=== PATIENT | male | born 1980 ===

== ENCOUNTER 2017-05-20 01:42 | Emergency (ER) | payer SELFPAY ==
[2017-05-20 01:55] VITALS: BP 145/98; PULSE 111; RESP 20; TEMP 98.1; O2SAT 100
--- NOTE | 2017-05-20 02:33 | ED PDOC ---
Arrival/HPI - General Chief Complaint: Anxiety Time Seen by Provider: 05/20/17 01:46 Historian: Patient - History of Present Illness Narrative History of Present Illness (Text): 05/20/17 02:29 A 37 year old male, who denies any past medical history, presents to the emergency department complaining of anxiety and feeling stressed this past month. Patient reports he recently came to the from [place] last month and has been feeling stressed out because of work. Reports he hasn't slept well. This evening he experienced episode of palpitations, shaking and sweating. Patient notes he had similar sx during an anxiety attack seven years ago. Notes he drinks four beers a week, denies any drug use. Denies any suicidal ideation, fever or any other complaints at this time. Symptom Onset: Sudden Symptom Course: Unchanged Modifying Factors (Text): none Associated Symptoms (Text): none Past Medical History - Provider Review Nursing Documentation Reviewed: Yes - Psychiatric Hx Substance Use: No - Surgical History Other/Comment: right nephrectomy Family/Social History - Physician Review Nursing Documentation Reviewed: Yes Family/Social History: Other (nc) Smoking Status: Never Smoked Hx Alcohol Use: Yes Frequency of alcohol use: Socially Hx Substance Use: No Allergies/Home Meds Allergies/Adverse Reactions: Allergies banana Allergy (Verified 05/20/17 01:57) RASH estrellita Allergy (Verified 05/20/17 01:57) RASH avacado Adverse Reaction (Uncoded 05/20/17 01:57) RASH Review of Systems - Physician Review All systems were reviewed & negative as marked: Yes - Review of Systems Constitutional: absent: Fevers Cardiovascular: Palpitations Psychiatric: Anxiety. absent: Suicidal Ideation Physical Exam Vital Signs Reviewed: Yes Vital Signs Temp Pulse Resp BP Pulse Ox 05/20/17 01:51 98.1 F 111 H 20 145/98 H 100 Appearance: Positive for: Well-Appearing, Non-Toxic, Comfortable Pain Distress: None Mental Status: Positive for: Alert and Oriented X 3 - Systems Exam Head: Present: Atraumatic, Normocephalic Pupils: Present: PERRL Extroacular Muscles: Present: EOMI Conjunctiva: Present: Normal Mouth: Present: Moist Mucous Membranes Neck: Present: Normal Range of Motion Respiratory/Chest: Present: Clear to Auscultation, Good Air Exchange. No: Respiratory Distress, Accessory Muscle Use Cardiovascular: Present: Regular Rate and Rhythm, Normal S1, S2. No: Murmurs Abdomen: Present: Normal Bowel Sounds. No: Tenderness, Distention, Peritoneal Signs Back: Present: Normal Inspection Upper Extremity: Present: Normal Inspection. No: Cyanosis, Edema Lower Extremity: Present: Normal Inspection. No: Edema Neurological: Present: GCS=15, CN II-XII Intact, Speech Normal Skin: Present: Warm, Dry, Normal Color. No: Rashes Psychiatric: Present: Alert, Oriented x 3, Normal Insight, Normal Concentration Medical Decision Making ED Course and Treatment: 05/20/17 02:41 EKG: Ordered, reviewed, and independently interpreted the EKG. Rate : 76 BPM Rhythm : NSR Interpretation : Benign early repolarization, normal EKG At the time of my evaluation the pt reported feeling much better. disc plan for rx and follow up. return precautions advised. - EKG Interpretation Interpreted by ED Physician: Yes Type: 12 lead EKG - Medication Orders Current Medication Orders: Discontinued Medications Alprazolam (Xanax) 0.5 mg PO STAT STA PRN Reason: Protocol Stop: 05/20/17 02:15 Last Admin: 05/20/17 02:29 Dose: 0.5 mg - Scribe Statement The provider has reviewed the documentation as recorded by the Josefina Puga Provider Scribe Attestation: All medical record entries made by the Scribe were at my direction and personally dictated by me. I have reviewed the chart and agree that the record accurately reflects my personal performance of the history, physical exam, medical decision making, and the department course for this patient. I have also personally directed, reviewed, and agree with the discharge instructions and disposition. Disposition/Present on Arrival - Present on Arrival Any Indicators Present on Arrival: No History of DVT/PE: No History of Uncontrolled Diabetes: No Urinary Catheter: No History of Decub. Ulcer: No History Surgical Site Infection Following: None - Disposition Have Diagnosis and Disposition been Completed?: Yes Diagnosis: Anxiety Disposition Time: 02:51 Condition: STABLE Discharge Instructions (ExitCare): Anxiety (ED) Print Language: [place] Additional Instructions: Please follow up with a primary doctor. Try breath right strips for your nose available at the drug store. Return to the ER for any worsening symptoms or for any other concerns. Prescriptions: Alprazolam [Xanax] 0.5 mg PO Q8H PRN #4 tab PRN Reason: Anxiety Forms: [facility] [employer] (French)
--- NOTE | 2017-05-20 18:22 | CARD ---
APPROVED REPORT EKG Measurement Heart [id number] [place] [id number] <Conclusion> Normal sinus rhythm Early repolarization Normal ECG
== END 2017-05-20 03:18 | disposition home or self-care (01) ==
LOC: EDSEX → ED 01:42
DX: F41.9 Anxiety disorder, unspecified (principal)